=== PATIENT | male | born 1955 | race Caucasian/White ===

== ENCOUNTER 2020-06-26 08:24 | Emergency (ER) | payer OTHER, MEDICARE ==
[~2020-06-26 08:24] MED LIST: Etomidate 2 MG/ML 20 ML SDV IVPUSH ONE; Midazolam 1 MG/ML 5 ML SDV ONE; Phenylephrine 1% 10 MG/ML SDV ONE; Rocuronium 50 MG/5 ML Vial ONE; Succinylcholine 200 MG/10 ML MDV ONE; fentaNYL 100 MCG/2 ML SDV ONE
[2020-06-26] MEDS ORDERED: Sodium Chloride 0.9% 1,000 ML IV ONE (08:25)
[2020-06-26] MEDS ORDERED: Lactated Ringers 1,000 ML IV ONE (08:25)
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
[2020-06-26] MEDS ORDERED: Sodium Chloride 0.9% 1,000 ML IV SCH (08:45)
[2020-06-26] MEDS ORDERED: propofoL 100 ML IV SCH (09:00)
[2020-06-26] MEDS ORDERED: Sodium Chloride 0.9% 10 ML Syringe FLUSH PRN (09:00)
[2020-06-26] MEDS ORDERED: Iopamidol 612 MG/ML 50 ML SDV IVPUSH ONE (09:00)
[2020-06-26] MEDS ORDERED: Iopamidol 612 MG/ML 100 ML Bottle IVPUSH ONE (09:00)
--- NOTE | 2020-06-26 09:35 | CT ---
Head CT Technique: Multiple axial sections of the brain were obtained. Intravenous contrast was not utilized. Reconstructed coronal and sagittal images were obtained. Comparison: No prior intracranial imaging is available. Findings: Soft tissue air is noted within the anterior skull as well as air being seen on both sides of the lateral scalp. There is fluid being seen within both sides of the lateral scalp. Soft tissue swelling is noted within the scalp. Soft tissue swelling is also noted to the lateral left orbital region. Ventricles along with basal cisterns and sulci over the convexities are within normal limits. No abnormal parenchymal densities are seen. No evidence of intracranial hemorrhage. No midline shift or mass-effect is seen. Small retention cyst is noted within the left maxillary sinus and ethmoid sinus. Slight mucosal thickening is also noted within the sphenoid sinus. Mastoid sinuses are clear. Bone window setting shows no acute calvarial finding. Impression: 1. Scalp injury with air-fluid levels, fluid as well as soft tissue swelling. 2. No acute intracranial abnormality is seen. 3. Slight sinus findings which are believed to be chronic. Diagnostic code #3
--- NOTE | 2020-06-26 09:45 | CT ---
CT cervical spine Technique: Multiple axial sections through the cervical spine were obtained. Reconstructed coronal and sagittal images were obtained. Findings: Fractures are noted within the posterior arch of C2 on both sides. Fracture occurs in two locations on the left side and through the vertebral foramina on the right side close to the pedicle. Fractures are also noted on the left side which extends into the apophyseal joint at C2-3. Small fractures are seen within the lamina on both sides at C6. No significant displacement is seen. Mildly displaced fracture is seen at the base of the spinous process at C7. Fracture are also noted within the lamina at T1 on both sides. No displacement is seen. Fractures are noted within the posterior right first and second ribs. Diffuse soft tissue swelling is noted within the upper paraspinal soft tissues. Scattered disc space narrowing is noted. Scattered degenerative apophyseal change is seen. Scattered degenerative change within the neural foramina are noted. Impression: 1. Multiple cervical spine fractures which are most severe within the posterior arches at C2 with one fracture extending to the right vertebral foramina and second fracture occurring in two locations posteriorly on the left side with some displacement of the fracture fragments. 2. Other fractures which are nondisplaced within the posterior elements as noted above. 3. Fractures are also noted within the posterior right first and second ribs. 4. Scattered degenerative change. Diagnostic code #5
--- NOTE | 2020-06-26 09:51 | CT ---
CT thoracic spine Technique: Multiple axial sections were obtained through the thoracic spine. Reconstructed coronal and sagittal images were obtained. Findings: Fractures are noted within the lamina of T1 on both sides. Fracture is noted within the lamina at T2 on the right side. There is mild anterior wedging of T2 which is felt to be acute. T3 shows mild anterior wedging with fracture lines being seen. Fracture is also noted within the tip of the spinous process at T3. Fractures are seen within the posterior first and second ribs on the right side. Diffuse paravertebral soft tissue swelling is seen within the upper spine. No additional thoracic spine fracture is seen. No abnormal subluxation is noted. Fracture is noted within the manubrium which is minimally displaced. Impression: 1. Mild anterior compression deformities of T2 and T3. Additional posterior spinous process fracture at T3 and lamina fractures at T2 on both sides. 2. Fractures are also noted posteriorly within the lamina at T1. 3. Posterior rib fractures at the first and second ribs on the right side. 4. Diffuse paravertebral soft tissue swelling within the upper thoracic spine. 5. Fracture within the manubrium is seen. Diagnostic code #5
--- NOTE | 2020-06-26 10:06 | CT ---
CT maxillofacial Technique: Multiple axial sections were obtained from inferior of the mandible to superior of the orbits. Reconstructed coronal and sagittal images were obtained. Limitations: Motion artifact. Findings: Slight mucosal thickening is seen within the sphenoid sinus and ethmoid sinus. Mild mucosal thickening is noted within both maxillary sinuses as well as a small left-sided retention cyst. No fluid levels are seen within the paranasal sinuses. Small superficial radiopacities are seen around the right orbit. Soft tissue swelling with several small radiopacities are seen within the left periorbita. Impression: 1. Sinus findings believed to be chronic. 2. Soft tissue radiopacities superficially on the skin around the right orbit and within the soft tissue swelling lateral to the left orbit. 3. No acute osseous finding is appreciated within the facial bone structures. Diagnostic code #2
--- NOTE | 2020-06-26 10:07 | CT ---
CT lumbar spine Technique: Multiple axial sections through the lumbar spine were obtained. Reconstructed coronal and sagittal images were obtained. Comparison: No prior lumbar spine imaging is available. Findings: Fractures are seen within the transverse process of L2, L3, L4 and L5 on the left side. Right sided transverse processes are intact. Vertebral body heights are maintained. No additional fracture is appreciated. Mild scattered circumferential disc bulges are seen. Mild scattered degenerative apophyseal change is noted. No abnormal subluxation is appreciated. Impression: 1. Fractures within the left L2, L3, L4 and L5 transverse process fractures on the left side. 2. Mild degenerative change with no other acute osseous abnormality being seen. Diagnostic code #3
--- NOTE | 2020-06-26 10:26 | CR ---
Chest: Portable view of the chest was obtained. Comparison: Prior chest CT study performed on the same day. Previous rib fractures are poorly seen on this exam. There is pleural thickening within both lung apices. Lungs otherwise are grossly clear. Heart size and mediastinum are normal. Impression: 1. Previous rib fractures are poorly identified on this study. 2. Slight pleural thickening within both lung apices. 3. Nothing acute is otherwise seen. Diagnostic code #2
--- NOTE | 2020-06-26 10:27 | CR ---
Pelvis: AP view of the pelvis was obtained. Previous: No prior pelvis exam is available other than that seen on CT abdomen and pelvis study. Joint spaces within both hips are maintained. No acute fracture or dislocation is seen. Impression: 1. Nothing acute is seen on AP pelvis study. Diagnostic code #1
--- NOTE | 2020-06-26 10:31 | CT ---
CT chest Technique: Multiple axial sections were obtained from above the lung apices inferiorly through the lung bases. Intravenous contrast was utilized. Reconstructed coronal and sagittal images were obtained. Comparison: No comparison available. Findings: Soft tissue swelling is seen within the paraspinal areas within the upper cervical spine and around several thoracic spine fractures. Thoracic aorta shows no abnormality. Pulmonary arteries appear normal in size. Mediastinum shows no hematoma other than slight anteriorly around a manubrial fracture. Nondisplaced fractures are seen within the anterior ninth and tenth left ribs. Mildly comminuted and slightly displaced fracture is noted within the anterior left sixth rib. Fractures are seen within the posterior right first and second ribs. Acute fracture is also noted anteriorly within the right sixth rib. Old right-sided rib fractures are noted which appear to be healed. Small bilateral pleural effusions are seen. Minimal atelectasis is noted. No other parenchymal finding is seen within the lungs. Impression: 1. Nondisplaced bilateral rib fractures as noted above. Mildly comminuted and mildly displaced fracture also noted anteriorly within the left sixth rib. 2. Manubrial fracture which shows no displacement. Slight soft tissue swelling noted posterior to the sternum at this level. 3. Fractures within the upper thoracic spine with surrounding soft tissue swelling. 4. Small bilateral pleural effusions and mild scattered atelectasis. 5. No other acute abnormality is appreciated. Diagnostic code #3 CT abdomen and pelvis Technique: Multiple axial sections were obtained from above the dome of the diaphragm inferiorly through the pubic symphysis. Intravenous contrast was utilized. No oral contrast has been given. Reconstructed coronal and sagittal images were obtained. Comparison: No prior abdominal imaging is available. Findings: Liver contains no focal abnormality. Spleen appears within normal limits. Adrenal glands show no nodule. Pancreas shows no discrete abnormality. Gallbladder contains no calcified gallstones. Kidneys show symmetric contrast enhancement. Four cysts are seen within the left kidney. Largest left kidney cyst measures 4.1 cm in size. Abdominal aorta shows no aneurysm. No retroperitoneal adenopathy is seen. Appendix is seen which is normal. No mesenteric abnormalities are seen. No pelvic mass or adenopathy is appreciated. Patterson catheter is seen within the bladder. Bone window settings were reviewed which show no acute fracture within the pelvis or hips. Left-sided transverse process fractures are seen within L2-L5. Impression: 1. Left-sided renal cyst as an incidentaloma. 2. Left-sided transverse process fractures within the lumbar spine. 3. No acute abnormality otherwise seen on CT study of the abdomen and pelvis. Diagnostic code #3
--- NOTE | 2020-06-26 10:55 | CR ---
Chest: Portable supine view of the chest was obtained. Comparison: Prior chest x-ray performed earlier on the same day Heart size and mediastinum are stable. Slight pleural thickening is again noted within both upper lungs. Lungs otherwise are clear. Endotracheal tube is seen lying at the level of the clavicles. Nasogastric tube is normal in position within the stomach. Previous rib fractures are poorly seen on this exam. Impression: 1. Endotracheal tube at the level of the clavicles as well as satisfactory position of nasogastric tube. 2. Other findings within the chest are stable from prior exam. Diagnostic code #3
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
== END 2020-06-26 10:56 ==
LOC: MERGE 08:24 → JD.ED 08:24 → EDBD 08:24 → JD.ED 10:56
DX: S32.039A Unspecified fracture of third lumbar vertebra, initial encounter for closed fracture (principal); S22.43XA Multiple fractures of ribs, bilateral, initial encounter for closed fracture; S22.019A Unspecified fracture of first thoracic vertebra, initial encounter for closed fracture; S12.190A Other displaced fracture of second cervical vertebra, initial encounter for closed fracture; S01.01XA Laceration without foreign body of scalp, initial encounter; J96.90 Respiratory failure, unspecified, unspecified whether with hypoxia or hypercapnia; R57.8 Other shock; V68.5XXA Driver of heavy transport vehicle injured in noncollision transport accident in traffic accident, initial encounter; Y92.410 Unspecified street and highway as the place of occurrence of the external cause
CPT/HCPCS: 31500; 36415; 36430; 51702; 70450; 70486; 71045; 71260; 72125; 72128; 72131; 72170; 74177; 80053; 80307; 81001; 82553; 83735; 83880; 84484; 85025; 85610; 85730; 86140; 86850; 86900; 86901; 86922; 92950; 99291; G0390; J0330; J2250; J2370; J2704; J3010; J3490; J7030; J7120; P9016; Q9967; 36620; 93010; 99292